=== PATIENT | male | born 1990 | race Hispanic/Latino ===

== ENCOUNTER 2017-07-08 07:25 | Emergency (ER) | payer BC ==
--- NOTE | 2017-07-08 09:22 | RAD ---
SINGLE VIEW OF THE CHEST: Comparison: None. History: Left arm stinging for one month. Chest pain. FINDINGS: Single view of the chest shows a normal sized cardiomediastinal silhouette. There is no evidence of c onsolidation, mass, or pleural effusion. The bones are unremarkable. IMPRESSION: No evidence of acute cardiopulmonary disease. POS: [facility]
== END 2017-07-08 08:48 | disposition home or self-care (01) ==
LOC: ERS 07:25
DX: R20.2 Paresthesia of skin (principal)
CPT/HCPCS: 71010; 93005; 94760

== ENCOUNTER 2020-04-16 01:45 | Emergency (ER) | payer BC | END 2020-04-16 02:06 | LOC: ERS 01:45 | DX: Z04.1 Encounter for examination and observation following transport accident (principal); V89.2XXA Person injured in unspecified motor-vehicle accident, traffic, initial encounter ==